=== PATIENT | female | born 1985 | race Caucasian/White ===

== ENCOUNTER 2019-06-20 10:35 | Emergency (ER) | payer MEDICAID ==
[2019-06-20] MEDS ORDERED: Sodium Chloride 0.9% 10 ML Syringe FLUSH PRN (11:07)
[2019-06-20] MEDS ORDERED: Furosemide 40 MG/4 ML VIAL IVPUSH ONE (11:07)
[2019-06-20] MEDS ORDERED: Spironolactone 25 MG Tab PO ONE (11:07)
--- NOTE | 2019-06-20 11:08 | EDM.PDOC ---
ED HPI GENERAL MEDICAL PROBLEM - General Chief Complaint: Abdominal Pain Stated Complaint: RETAINING FLUID IN ABDOMEN/SOB Time Seen by Provider: 06/20/19 10:52 Source of Information: Reports: Patient History Limitations: Reports: No Limitations - History of Present Illness INITIAL COMMENTS - FREE TEXT/NARRATIVE: 34-year-old female presents to the ED due to increasing shortness of breath on minimal exertion. Patient is known to have cirrhosis of the liver with severe ascites and anasarca symptoms. She is on Lasix 40 mg once daily and believes it is no longer helping. Is a open wound on the surface of her skin right lower quadrant of the abdomen. She has never had a paracentesis. He could not do her work today because of shortness of breath on exertion. She said she states that she sleeps lying down on her side without pillows. She has a mild cough on exertion. Is her chronically swollen. She states she is still drinking small quantities of alcohol but has been cutting back. Therefore her cirrhosis appears to be alcohol induced. She states that she was diagnosed with cirrhosis of the liver in December last year. Onset: Gradual Duration: Chronic (Apparently initial diagnosis of cirrhosis of the liver was made in December last ) Location: Reports: Chest, Abdomen (Shortness of breath severe abdominal distention due to ascites), Lower Extremity, Left (Chronic dependent edema both lower extremities), Lower Extremity, Right Quality: Reports: Other (Dyspnea on minimal exertion.) Severity: Moderate Improves with: Reports: Rest Worsens with: Reports: Other Context: Reports: Other (Is essentially has anasarca from cirrhosis of the liver ). Denies: Activity, Exercise, Lifting, Sick Contact, Trauma Associated Symptoms: Reports: Cough, cough w sputum, Malaise, Shortness of Breath, Weakness. 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 Musculoskeletal History: Reports: None Neurological History: Reports: None Psychiatric History: Reports: None, Anxiety Endocrine/Metabolic History: Reports: None, Diabetes, Type II Hematologic History: Reports: None Dermatologic History: Reports: None Social & Family History - Tobacco Use Smoking Status *Q: Never Smoker - Caffeine Use Caffeine Use: Reports: Soda - Alcohol Use Alcohol Use History: Yes - Recreational Drug Use Recreational Drug Use: No - Living Situation & Occupation Living situation: Reports: Single Occupation: Employed ED ROS GENERAL - Review of Systems Review Of Systems: See Below Constitutional: Reports: Malaise, Fatigue, Decreased Appetite. Denies: Fever, Chills HEENT: Reports: No Symptoms Respiratory: Reports: Shortness of Breath, Wheezing, Cough. Denies: Pleuritic Chest Pain, Sputum, Hemoptysis, Other Cardiovascular: Reports: Dyspnea on Exertion, Edema (Anasarca due to cirrhosis of the liver), Orthopnea. Denies: Chest Pain, Blood Pressure Problem, Claudication, Lightheadedness (Held. Usually is able to lie on her side to sleep.) Endocrine: Reports: Fatigue (Chronically) GI/Abdominal: Reports: Abdominal Pain (Generalized due to severe ascites.), Diarrhea (Tend to be on the looser side.), Decreased Appetite (Early satiety) : Reports: Frequency Musculoskeletal: Reports: Joint Pain (Knees hips low back) Skin: Reports: Bruising (Oscar), Other (Peau d'orange change of the entire lower abdominal wall due to ascites) Neurological: Reports: No Symptoms Psychiatric: Reports: No Symptoms Hematologic/Lymphatic: Reports: Anemia (Been anemic in the past.), Easy Bruising Immunologic: Reports: No Symptoms ED EXAM, GI/ABD - Physical Exam Exam: See Below Exam Limited By: No Limitations General Appearance: Alert, Moderate Distress, Other (Temperature is 36.3 heart rate is 99 respiratory is 20 BP 140/75 O2 sats 90% on room air) Eyes: Bilateral: Normal Appearance (Very mild scleral icterus. No blepharal pallor) Throat/Mouth: Normal Inspection, Normal Lips, Normal Oropharynx Head: Atraumatic, Normocephalic Neck: Normal Inspection, Supple, Non-Tender, Full Range of Motion. No: Carotid Bruit, Lymphadenopathy (L), Lymphadenopathy (R) Respiratory/Chest: No Accessory Muscle Use, Respiratory Distress (Kidney at rest.), Rales (And rales both bases of the lungs.). No: Normal Breath Sounds Cardiovascular: Regular Rate, Rhythm, No Gallop, No Murmur, No Rub. No: Normal Peripheral Pulses, No Edema GI/Abdominal Exam: Normal Bowel Sounds, Other (Abdomen is firm and severely distended due to ascites. He is distended throughout with peau d'orange changes in both lower quadrants of the abdomen.) Back Exam: Normal Inspection, Other (Increased lumbar lordosis of lumbar spine.) Extremities: Pedal Edema (4+ pitting edema both lower extremities up to the groins bilaterally. This tissue is tense and hard. There is evidence of venous stasis dermatitis both lower extremities.), Other (Pulses are palpable below below the femorals. Even the femorals are very difficult to palpate due to abdominal girth.) Neurological: Alert, Oriented, CN II-XII Intact Psychiatric: Normal Affect, Normal Mood Skin Exam: Warm, Dry, Intact, Normal Color, No Rash Course - Vital Signs Last Recorded V/S: Last Vital Signs Temp 36.3 C 06/20/19 10:54 Pulse 99 06/20/19 10:54 Resp 20 06/20/19 10:54 BP 140/75 06/20/19 10:54 Pulse Ox 90 L 06/20/19 10:54 - Orders/Labs/Meds Orders: Active Orders 24 hr Category Date Time Status Peripheral IV Care [RC] . DIRECTED Care 06/20/19 11:07 Active Peripheral IV Insertion Adult [OM.PC] Stat Oth 06/20/19 11:07 Ordered Labs: Laboratory Tests 06/20/19 06/20/19 06/20/19 Range/Units 11:40 11:40 11:40 WBC 17.83 H (3.98-10.04) K/mm3 RBC 3.98 (3.98-5.22) M/mm3 Hgb 13.1 (11.2-15.7) gm/dl Hct 39.6 (34.1-44.9) % MCV 99.5 H (79.4-94.8) fl MCH 32.9 H (25.6-32.2) pg MCHC 33.1 (32.2-35.5) g/dl RDW Std Deviation 61.0 H (36.4-46.3) fL Plt Count 272 (182-369) K/mm3 MPV 9.0 L (9.4-12.3) fl Neutrophils % (Manual) 79 H (40-60) % Band Neutrophils % 0 (0-10) % Lymphocytes % (Manual) 17 L (20-40) % Atypical Lymphs % 0 % Monocytes % (Manual) 3 (2-10) % Eosinophils % (Manual) 1 (0.7-5.8) % Basophils % (Manual) 0 L (0.1-1.2) Platelet Estimate Adequate Anisocytosis Sl RBC Morph Comment Abnormal PT 11.1 (9.7-12.0) SECONDS INR 1.02 APTT 29 (22-31) SECONDS Sodium 129 L D (136-145) mEq/L Potassium 3.2 L (3.5-5.1) mEq/L Chloride 88 L (98-107) mEq/L Carbon Dioxide 31 (21-32) mEq/L Anion Gap 13.2 (5-15) BUN 1 L (7-18) mg/dL Creatinine 0.7 (0.55-1.02) mg/dL Est Cr Clr Drug Dosing 90.41 mL/min Estimated GFR (MDRD) > 60 (>60) mL/min BUN/Creatinine Ratio 1.4 L (14-18) Glucose 95 (74-106) mg/dL Calcium 8.7 (8.5-10.1) mg/dL Magnesium 1.2 L (1.8-2.4) mg/dl Total Bilirubin 1.0 (0.2-1.0) mg/dL GGT 434 H (5-55) U/L AST 69 H (15-37) U/L ALT 35 (14-59) U/L Alkaline Phosphatase 154 H (46-116) U/L C-Reactive Protein 6.7 H* (<1.0) mg/dL NT-Pro-B Natriuret Pep (0-125) pg/mL Total Protein 7.8 (6.4-8.2) g/dl Albumin 2.6 L (3.4-5.0) g/dl Globulin 5.2 gm/dL Albumin/Globulin Ratio 0.5 L (1-2) Lipase (73-393) U/L 06/20/19 06/20/19 Range/Units 11:40 11:40 WBC (3.98-10.04) K/mm3 RBC (3.98-5.22) M/mm3 Hgb (11.2-15.7) gm/dl Hct (34.1-44.9) % MCV (79.4-94.8) fl MCH (25.6-32.2) pg MCHC (32.2-35.5) g/dl RDW Std Deviation (36.4-46.3) fL Plt Count (182-369) K/mm3 MPV (9.4-12.3) fl Neutrophils % (Manual) (40-60) % Band Neutrophils % (0-10) % Lymphocytes % (Manual) (20-40) % Atypical Lymphs % % Monocytes % (Manual) (2-10) % Eosinophils % (Manual) (0.7-5.8) % Basophils % (Manual) (0.1-1.2) Platelet Estimate Anisocytosis RBC Morph Comment PT (9.7-12.0) SECONDS INR APTT (22-31) SECONDS Sodium (136-145) mEq/L Potassium (3.5-5.1) mEq/L Chloride (98-107) mEq/L Carbon Dioxide (21-32) mEq/L Anion Gap (5-15) BUN (7-18) mg/dL Creatinine (0.55-1.02) mg/dL Est Cr Clr Drug Dosing mL/min Estimated GFR (MDRD) (>60) mL/min BUN/Creatinine Ratio (14-18) Glucose (74-106) mg/dL Calcium (8.5-10.1) mg/dL Magnesium (1.8-2.4) mg/dl Total Bilirubin (0.2-1.0) mg/dL GGT (5-55) U/L AST (15-37) U/L ALT (14-59) U/L Alkaline Phosphatase (46-116) U/L C-Reactive Protein (<1.0) mg/dL NT-Pro-B Natriuret Pep 240 H (0-125) pg/mL Total Protein (6.4-8.2) g/dl Albumin (3.4-5.0) g/dl Globulin gm/dL Albumin/Globulin Ratio (1-2) Lipase 68 L (73-393) U/L Meds: Medications Discontinued Medications Generic Name Dose Route Start Last Admin Trade Name Freq PRN Reason Stop Dose Admin Furosemide 60 mg 06/20/19 11:07 Lasix IVPUSH 06/20/19 11:08 NOW ONE Furosemide 80 mg 06/20/19 11:35 06/20/19 11:47 Lasix IM 06/20/19 11:36 80 mg NOW ONE Administration Sodium Chloride 10 ml 06/20/19 11:07 Saline Flush FLUSH ASDIRECTED PRN Keep Vein Open Spironolactone 25 mg 06/20/19 11:07 06/20/19 11:49 Aldactone PO 06/20/19 11:08 25 mg ONETIME ONE Administration - Radiology Interpretation Free Text/Narrative:: 84-year-old male presents to the ED due to increasing dyspnea on minimal exertion. She is finding that she is so short of breath on exertion that she cannot perform the duties of her job. Patient was diagnosed with cirrhosis of the liver from alcoholism in December last year. She has basically anasarca on presentation with severe ascites of the abdomen and peau d'orange edema of the lower abdominal wall. She has a few crackles in both lung bases. Only on 40 mg of Lasix once daily. She has never had a paracentesis. 02 Sats are 90% on room air. Has an open wound right lower quadrant of the abdomen which is superficial but is concerning for possibility of creating worsening infection if paracentesis is attempted. Also do not believe that our paracentesis needles are going to be large enough to perform the procedure. I am going to give her Lasix 60 mg IV and have lab drawn. She will have 1 portable chest x- ray. - Re-Assessments/Exams Free Text/Narrative Re-Assessment/Exam: 06/20/19 11:39 is identified that they were unable to start an IV. Lab is hopefully going to be able to obtain a blood sample. I will give her 80 mg of Lasix IM instead of 60 mg IV. 06/20/19 12:24 CXR done portably reveals very poor inspirational film. This therefore suggests cardiomegaly and diffuse vascular congestion without pleural effusion but the film is essentially done at full expiration. 06/20/19 13:52 Hematology reveals an elevated white count at 17.83 with 79% neutrophils but no bands. Hemoglobin is 13.1 with hematocrit of 39.6. MCV is elevated at 99.5 compatible with chronic alcohol use. Platelet count 272,000. PT is 11.1 with an INR of 1.02 and a PTT of 29 essentially normal coags. Sodium is low at 129. Potassium slightly low at 3.2. Chloride is 88 with a bicarb of 31. Anion gap is 13.2. BUN is 1 with a creatinine of 0.7. GFR remains greater than 60. Glucose is 95 with a calcium of 8.7. Magnesium is low at 1.2 bilirubin is 1.0 GGT is elevated at 434 AST elevated at 69 ALT normal at 35 alk phos stays mildly elevated at 154. C-reactive protein is 6.7. BNP was 240 total protein is 7.8 albumin fraction low at 2.6. Lipase is normal at 68. Departure - Departure Time of Disposition: 14:30 Disposition: Home, Self-Care 01 Condition: Fair Clinical Impression: Hypomagnesemia, Hyponatremia, Hypokalemia Cirrhosis of liver with ascites Qualifiers: Hepatic cirrhosis type: alcoholic cirrhosis Qualified Code(s): K70.31 - Alcoholic cirrhosis of liver with ascites - Discharge Information *PRESCRIPTION DRUG MONITORING PROGRAM REVIEWED*: Not Applicable *COPY OF PRESCRIPTION DRUG MONITORING REPORT IN PATIENT EDMUNDO: Not Applicable Prescriptions: Furosemide [Lasix] 40 mg PO BID #60 tablet Magnesium Chloride [Slow-Mag] 71.5 mg PO DAILY #120 tablet. Spironolactone [Aldactone] 25 mg PO BID #60 tablet Instructions: Ascites Referrals: Vianey Yang PA-C [Primary Care Provider] - Forms: ED Department Discharge, ED Return to Work/School Form Additional Instructions: Evaluation in the emergency room today in regards to worsening ascites or fluid collection within the abdominal cavity pushing up on her diaphragms making her short of breath. There is also some evidence of fluid in your lungs on examination and on chest x-ray. Of course significant edema or swelling of both lower extremities from fluid retention. This is secondary to cirrhosis of the liver which was diagnosed in December last year. It is very important that you try and discontinue all alcohol intake. The other medication to be careful of his Tylenol. You should take never more than 2 g in a 24-hour period of time. Labs found that you are slightly low on your potassium level but kidney functions is working perfectly fine. The liver is a little bit sick. Pancreas was normal. You were found to be quite low on magnesium which he had in her diet mostly from eating meat. Water pills tend to make this go lower. Your serum sodium level was slightly low at 129. You should make sure that you drink juices and not just water on a daily basis. You were given 80 mg of Lasix intramuscularly in the ED since IV access was not obtained. This produced significant diuresis. You should try and step on a scale on a daily basis and write down your weight so that we can identify that you are actually losing weight while on diuretics. New medication is to be Lasix 40 mg twice daily first thing in the morning and again mid afternoon between 2 and 3:00. This is to be taken with Spironolactone or Aldactone tablet 25 mg twice daily as well with the Lasix tablet as it makes it work better. It also helps you retain more of your potassium. Suggest stopping your potassium supplement until further lab tests are performed in the next week or so. Magnesium supplement is to be Slow-Mag 2 tablets twice daily. Suggest follow-up with a physician either Dr. Lewis or Dr. Rodriguez at [facility] or the [facility] for further evaluation and management. Sepsis Event Note - Evaluation Sepsis Screening Result: No Definite Risk - Focused Exam Vital Signs: Vital Signs Temp Pulse Resp BP Pulse Ox 06/20/19 10:54 36.3 C 99 20 140/75 90 L Date Exam was Performed: 06/20/19 Time Exam was Performed: 14:47 - My Orders Last 24 Hours: My Active Orders 06/20/19 11:07 Peripheral IV Care [RC] . DIRECTED Peripheral IV Insertion Adult [OM.PC] Stat - Assessment/Plan Last 24 Hours: My Active Orders 06/20/19 11:07 Peripheral IV Care [RC] . DIRECTED Peripheral IV Insertion Adult [OM.PC] Stat
[2019-06-20] MEDS ORDERED: Furosemide 40 MG/4 ML VIAL IM ONE (11:35)
--- NOTE | 2019-06-20 14:39 | CR ---
Chest: Portable view of the chest was obtained. Comparison: Prior chest x-ray of 12/24/18. Elevated right hemidiaphragm is seen which is chronic. Heart is slightly enlarged most likely relating to patient body habitus. No acute parenchymal change is seen. Bony structures are grossly intact. Impression: 1. Findings as noted above. 2. Nothing acute is suspected. Diagnostic code #2 This report was dictated in MDT
== END 2019-06-20 14:32 | disposition home or self-care (01) ==
LOC: JD.ED 10:35
DX: E87.6 Hypokalemia (principal); E83.42 Hypomagnesemia; E87.1 Hypo-osmolality and hyponatremia; K70.31 Alcoholic cirrhosis of liver with ascites; E11.9 Type 2 diabetes mellitus without complications; Z79.84 Long term (current) use of oral hypoglycemic drugs
CPT/HCPCS: 36415; 71045; 80053; 82977; 83690; 83735; 83880; 85007; 85027; 85610; 85730; 86140; 96372; 99285; A9270; J1940

== ENCOUNTER 2020-05-25 10:15 | Emergency (ER) | payer MEDICAID, OTHER ==
[2020-05-25] MEDS ORDERED: Albuterol/Ipratropium 3.0-0.5 MG/3 ML Neb Soln ONE (10:21)
[2020-05-25] MEDS ORDERED: Albuterol/Ipratropium 3.0-0.5 MG/3 ML Neb Soln NEB PRN (10:23)
--- NOTE | 2020-05-25 10:42 | EDM.PDOC ---
ED HPI GENERAL MEDICAL PROBLEM - General Chief Complaint: Respiratory Problem Stated Complaint: [facility] Time Seen by Provider: 05/25/20 10:17 Source of Information: Reports: Patient History Limitations: Reports: No Limitations - History of Present Illness INITIAL COMMENTS - FREE TEXT/NARRATIVE: 84-year-old female presents to the ED with upper respiratory tract infection with paroxysmal productive cough of yellowish-brown sputum x3 days. Presents to the ED due to being very short of breath on presentation to the walk-in clinic at [facility]. O2 sats reportedly only 70% on room air. Patient was placed nonrebreather mask at 12 L/min upon arrival in the ED. She has bilateral crackles in both upper lobes of the lungs and bases. She reports she is on Lasix 40 mg a day but has not taken any of her meds today. Appetite has been poor and she did not take much in the way of solids or fluids yesterday. No known exposure to COVID-19 illness. She has not received any immunizations in this regard. She does not have a history of asthma. Onset: Gradual Onset Date: 05/22/20 Duration: Day(s):, Constant, Getting Worse Location: Reports: Chest Quality: Reports: Other (Of breath at rest. Worse with exertion.) Severity: Severe (Dyspnea even at rest) Improves with: Reports: Rest Worsens with: Reports: Movement (Is with movement or walking.) Context: Denies: Activity, Exercise, Lifting, Sick Contact, Trauma, Other Associated Symptoms: Reports: Cough, cough w sputum, Loss of Appetite, Malaise, Shortness of Breath, Weakness. 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) Headache Pain Score (Numeric/FACES): 8 - Related Data Allergies Allergy/AdvReac Type Severity Reaction Status Date / Time potassium chloride Allergy Hives Verified 05/25/20 10:22 Home Meds: Home Meds l-Norgest/E.estradiol-E.estrad [Daysee 0.15-0.03-0.01 mg Tab] 1 tab PO DAILY 06/20/19 [History] Ascorbic Acid [C-1000] 1,000 mg PO DAILY 05/25/20 [History] Calcium Carbonate/Vitamin D3 [Calcium 600 mg-Vit D3 10Mcg Tb] 2 tab PO BID 05/25/20 [History] FLUoxetine [PROzac] 40 mg PO DAILY 05/25/20 [History] Ferrous Sulfate 325 mg PO DAILY 05/25/20 [History] Furosemide [Lasix] 40 mg PO DAILY 05/25/20 [History] Hydrocodone/Acetaminophen [Hydrocodone-Acetamin 5-325 mg] 1 tab PO Q12H PRN 05/25/20 [History] Levothyroxine [Synthroid] 50 mcg PO DAILY 05/25/20 [History] Multivitamin [Multiple Vitamins] 1 tab PO DAILY 05/25/20 [History] OLANZapine [Olanzapine] 5 mg PO DAILY 05/25/20 [History] Dyke-3 Fatty Acids/Fish Oil [Fish Oil 1,000 mg Capsule] 3 cap PO DAILY 05/25/20 [History] Potassium Chloride 20 meq PO DAILY 05/25/20 [History] busPIRone [Buspar] 15 mg PO DAILY 05/25/20 [History] cloNIDine [Catapres] 0.1 mg PO BEDTIME 05/25/20 [History] predniSONE 40 mg PO DAILY 05/25/20 [History] Past Medical History HEENT History: Reports: None Cardiovascular History: Reports: Hypertension Respiratory History: Reports: None Gastrointestinal History: Reports: Fatty Liver Genitourinary History: Reports: None 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 Musculoskeletal History: Reports: None Neurological History: Reports: None Psychiatric History: Reports: None, Anxiety Endocrine/Metabolic History: Reports: None, Diabetes, Type II, Obesity/BMI 30+ (Morbid obesity) Hematologic History: Reports: None Dermatologic History: Reports: None Social & Family History - Caffeine Use Caffeine Use: Reports: Soda - Living Situation & Occupation Living situation: Reports: Single Occupation: Employed [employer] [email or web address]] GENERAL - Review of Systems Review Of Systems: See Below Constitutional: Reports: Malaise, Weakness, Fatigue, Decreased Appetite. Denies: Fever, Chills, Weight Loss HEENT: Reports: No Symptoms Respiratory: Reports: Shortness of Breath, Cough, Sputum. Denies: Wheezing, Pleuritic Chest Pain, Hemoptysis Cardiovascular: Reports: Blood Pressure Problem, Dyspnea on Exertion, Edema. Denies: Chest Pain (Yellow to brown sputum.), Claudication, Lightheadedness, Orthopnea Endocrine: Reports: Fatigue GI/Abdominal: Reports: No Symptoms, Decreased Appetite. Denies: Abdominal Pain, Anorexia, Black Stool, Bloody Stool, Difficulty Swallowing : Reports: No Symptoms Musculoskeletal: Reports: Back Pain, Joint Pain Skin: Reports: No Symptoms (He is in hips.) Neurological: Reports: No Symptoms Psychiatric: Reports: Anxiety, Depression, Mood Lability Hematologic/Lymphatic: Reports: No Symptoms Immunologic: Reports: No Symptoms ED EXAM, GENERAL - Physical Exam Exam: See Below Exam Limited By: No Limitations General Appearance: Alert, Moderate Distress (This apneic. Not tolerating), Other ( mask very well is feeling claustrophobic. Temperature is 36.1 with heart rate 120 and sinus on the monitor respiratory is 28 to 32/min with pulse ox of 78%. BP 143/90.) Eye Exam: Bilateral Eye: Normal Inspection Ears: Normal TMs Throat/Mouth: Normal Inspection, Normal Lips, Normal Oropharynx, Other Head: Atraumatic, Normocephalic Neck: Normal Inspection (Tongue is dry and coated.), Supple, Non-Tender, Full Range of Motion. No: Carotid Bruit, Lymphadenopathy (L), Lymphadenopathy (R), Thyromegaly Respiratory/Chest: Respiratory Distress, Decreased Breath Sounds (Marked tachypnea on examination.), Rales ( Decreased breath sounds to both lower lung hannon by 20%. Bilateral crackles in both), Rhonchi (Rhonchi right upper lung field.). No: Lungs Clear ( lower lung hannon.), Normal Breath Sounds, Wheezing Cardiovascular: Regular Rate, Rhythm, No Gallop, No JVD, No Murmur, Tachycardia (Tachycardia 120 at rest.). No: No Edema Peripheral Pulses: 2+: Carotid (L), Carotid (R), Posterior Tibial (L), Posterior Tibial (R), Dorsalis Pedis (L), Dorsalis Pedis (R) GI/Abdominal: Normal Bowel Sounds, Soft, Non-Tender, No Mass, Other ([place] girth limits ability to palpate solid organs. Morbidly obese.) Back Exam: Normal Inspection, Full Range of Motion. No: CVA Tenderness (L), CVA Tenderness (R) Neurological: Alert, Oriented, CN II-XII Intact, Normal Cognition Psychiatric: Normal Affect, Normal Mood Skin Exam: Warm, Dry, Intact, Normal Color, No Rash #1 Interpretation EKG Date: 05/25/20 Time: 12:07 Rhythm: Other Rate (Beats/Min): 109 Iraan: Normal P-Wave: Enlarged (Atrial hypertrophy inverted T waves V1 V2 but overall rhythm appears to be sinus not ectopic.) QRS: Other (Initial poor R wave progression. Consider possible old anteroseptal myocardial infarction. There is delayed R wave transition. Decreased voltage in the precordial leads. Left atrial) ST-T: Other (T wave inverted aVL nonspecific finding) QT: Prolonged (Mildly prolonged) EKG Interpretation Comments: Abnormal ECG Course - Vital Signs Last Recorded V/S: Last Vital Signs Temp 36.0 C L 05/25/20 15:20 Pulse 98 05/25/20 15:20 Resp 28 H 05/25/20 15:20 BP 133/72 05/25/20 15:20 Pulse Ox 96 05/25/20 15:20 - Orders/Labs/Meds Orders: Active Orders 24 hr Category Date Time Status CULTURE BLOOD [BC] Stat Lab 05/25/20 11:00 Received CULTURE BLOOD [BC] Stat Lab 05/25/20 11:12 Received Blood Culture x2 Reflex Set [OM.PC] Stat Oth 05/25/20 10:25 Ordered Blood Culture x2 Reflex Set [OM.PC] Stat Oth 05/25/20 10:47 Ordered Labs: Laboratory Tests 05/25/20 05/25/20 05/25/20 Range/Units 10:30 10:55 11:00 WBC 14.55 H (3.98-10.04) K/mm3 RBC 4.44 (3.98-5.22) M/mm3 Hgb 14.6 D (11.2-15.7) gm/dl Hct 45.8 H (34.1-44.9) % MCV 103.2 H (79.4-94.8) fl MCH 32.9 H (25.6-32.2) pg MCHC 31.9 L (32.2-35.5) g/dl RDW Std Deviation 58.7 H (36.4-46.3) fL Plt Count 196 D (182-369) K/mm3 MPV 8.8 L (9.4-12.3) fl Neut % (Auto) 69.9 (34.0-71.1) % Lymph % (Auto) 23.7 (19.3-51.7) % [place] % (Auto) 4.2 L (4.7-12.5) % Eos % (Auto) 0.2 L (0.7-5.8) Baso % (Auto) 0.5 (0.1-1.2) % Neut # (Auto) 10.17 H (1.56-6.13) K/mm3 Lymph # (Auto) 3.45 (1.18-3.74) K/mm3 [place] # (Auto) 0.61 H (0.24-0.36) K/mm3 Eos # (Auto) 0.03 L (0.04-0.36) K/mm3 Baso # (Auto) 0.07 (0.01-0.08) K/mm3 Manual Slide Review Normal smear PT (9.7-12.0) SECONDS INR APTT (21.7-31.4) SECONDS D-Dimer, Quantitative (0.19-0.50) mg/L Puncture Site Rt radial ABG pH 7.50 H (7.35-7.45) ABG pCO2 47.1 H (35.0-45.0) mmHg ABG pO2 43.0 L (80.0-100.0) mmHg ABG HCO3 36.0 H (22.0-26.0) meq/L ABG O2 Saturation 74.0 L (96.0-97.0) % ABG Base Excess 11.1 H (-2-2.0) Ronan Test Positive A-a Gradient 48 mmHg O2 Delivery Device Room air FiO2 21.00 (21.00-100.00) % Sodium (136-145) mEq/L Potassium (3.5-5.1) mEq/L Chloride (98-107) mEq/L Carbon Dioxide (21-32) mEq/L Anion Gap (5-15) BUN (7-18) mg/dL Creatinine (0.55-1.02) mg/dL Est Cr Clr Drug Dosing mL/min Estimated GFR (MDRD) (>60) mL/min BUN/Creatinine Ratio (14-18) Glucose (74-106) mg/dL Lactic Acid (0.4-2.0) mmol/L Calcium (8.5-10.1) mg/dL Magnesium (1.8-2.4) mg/dl Ferritin (8-252) ng/ml Total Bilirubin (0.2-1.0) mg/dL AST (15-37) U/L ALT (14-59) U/L Alkaline Phosphatase (46-116) U/L Lactate Dehydrogenase (81-234) U/L Troponin I (0.00-0.056) ng/mL C-Reactive Protein (<1.0) mg/dL NT-Pro-B Natriuret Pep (0-125) pg/mL Total Protein (6.4-8.2) g/dl Albumin (3.4-5.0) g/dl Globulin gm/dL Albumin/Globulin Ratio (1-2) Urine Color (Yellow) Urine Appearance (Clear) Urine pH (5.0-8.0) Ur Specific [place] (1.005-1.030) Urine Protein (Negative) Urine Glucose (UA) (Negative) Urine Ketones (Negative) Urine Occult Blood (Negative) Urine Nitrite (Negative) Urine Bilirubin (Negative) Urine Urobilinogen (0.2-1.0) Ur Leukocyte Esterase (Negative) Urine RBC (0-5) /hpf Urine WBC (0-5) /hpf Ur Squamous Epith Cells (0-5) /hpf Urine Bacteria (FEW) /hpf Urine Mucus (FEW) /hpf SARS-CoV-2 RNA (TERRA) Positive H (NEGATIVE) 05/25/20 05/25/20 05/25/20 Range/Units 11:00 11:00 11:00 WBC (3.98-10.04) K/mm3 RBC (3.98-5.22) M/mm3 Hgb (11.2-15.7) gm/dl Hct (34.1-44.9) % MCV (79.4-94.8) fl MCH (25.6-32.2) pg MCHC (32.2-35.5) g/dl RDW Std Deviation (36.4-46.3) fL Plt Count (182-369) K/mm3 MPV (9.4-12.3) fl Neut % (Auto) (34.0-71.1) % Lymph % (Auto) (19.3-51.7) % [place] % (Auto) (4.7-12.5) % Eos % (Auto) (0.7-5.8) Baso % (Auto) (0.1-1.2) % Neut # (Auto) (1.56-6.13) K/mm3 Lymph # (Auto) (1.18-3.74) K/mm3 [place] # (Auto) (0.24-0.36) K/mm3 Eos # (Auto) (0.04-0.36) K/mm3 Baso # (Auto) (0.01-0.08) K/mm3 Manual Slide Review PT 10.7 (9.7-12.0) SECONDS INR 1.00 APTT 27.7 (21.7-31.4) SECONDS D-Dimer, Quantitative (0.19-0.50) mg/L Puncture Site ABG pH (7.35-7.45) ABG pCO2 (35.0-45.0) mmHg ABG pO2 (80.0-100.0) mmHg ABG HCO3 (22.0-26.0) meq/L ABG O2 Saturation (96.0-97.0) % ABG Base Excess (-2-2.0) Ronan Test A-a Gradient mmHg O2 Delivery Device FiO2 (21.00-100.00) % Sodium 140 (136-145) mEq/L Potassium 3.1 L (3.5-5.1) mEq/L Chloride 95 L (98-107) mEq/L Carbon Dioxide 36 H (21-32) mEq/L Anion Gap 12.1 (5-15) BUN 12 (7-18) mg/dL Creatinine 1.1 H (0.55-1.02) mg/dL Est Cr Clr Drug Dosing 57.53 mL/min Estimated GFR (MDRD) 57 (>60) mL/min BUN/Creatinine Ratio 10.9 L (14-18) Glucose 110 H (74-106) mg/dL Lactic Acid (0.4-2.0) mmol/L Calcium 9.1 D (8.5-10.1) mg/dL Magnesium 1.6 L (1.8-2.4) mg/dl Ferritin (8-252) ng/ml Total Bilirubin 0.6 (0.2-1.0) mg/dL AST 53 H (15-37) U/L ALT 63 H (14-59) U/L Alkaline Phosphatase 77 (46-116) U/L Lactate Dehydrogenase (81-234) U/L Troponin I 0.021 (0.00-0.056) ng/mL C-Reactive Protein 17.1 H* (<1.0) mg/dL NT-Pro-B Natriuret Pep 355 H (0-125) pg/mL Total Protein 6.7 (6.4-8.2) g/dl Albumin 2.7 L (3.4-5.0) g/dl Globulin 4.0 gm/dL Albumin/Globulin Ratio 0.7 L (1-2) Urine Color (Yellow) Urine Appearance (Clear) Urine pH (5.0-8.0) Ur Specific [place] (1.005-1.030) Urine Protein (Negative) Urine Glucose (UA) (Negative) Urine Ketones (Negative) Urine Occult Blood (Negative) Urine Nitrite (Negative) Urine Bilirubin (Negative) Urine Urobilinogen (0.2-1.0) Ur Leukocyte Esterase (Negative) Urine RBC (0-5) /hpf Urine WBC (0-5) /hpf Ur Squamous Epith Cells (0-5) /hpf Urine Bacteria (FEW) /hpf Urine Mucus (FEW) /hpf SARS-CoV-2 RNA (TERRA) (NEGATIVE) 05/25/20 05/25/20 05/25/20 Range/Units 11:00 11:00 11:00 WBC (3.98-10.04) K/mm3 RBC (3.98-5.22) M/mm3 Hgb (11.2-15.7) gm/dl Hct (34.1-44.9) % MCV (79.4-94.8) fl MCH (25.6-32.2) pg MCHC (32.2-35.5) g/dl RDW Std Deviation (36.4-46.3) fL Plt Count (182-369) K/mm3 MPV (9.4-12.3) fl Neut % (Auto) (34.0-71.1) % Lymph % (Auto) (19.3-51.7) % [place] % (Auto) (4.7-12.5) % Eos % (Auto) (0.7-5.8) Baso % (Auto) (0.1-1.2) % Neut # (Auto) (1.56-6.13) K/mm3 Lymph # (Auto) (1.18-3.74) K/mm3 [place] # (Auto) (0.24-0.36) K/mm3 Eos # (Auto) (0.04-0.36) K/mm3 Baso # (Auto) (0.01-0.08) K/mm3 Manual Slide Review PT (9.7-12.0) SECONDS INR APTT (21.7-31.4) SECONDS D-Dimer, Quantitative 0.27 (0.19-0.50) mg/L Puncture Site ABG pH (7.35-7.45) ABG pCO2 (35.0-45.0) mmHg ABG pO2 (80.0-100.0) mmHg ABG HCO3 (22.0-26.0) meq/L ABG O2 Saturation (96.0-97.0) % ABG Base Excess (-2-2.0) Ronan Test A-a Gradient mmHg O2 Delivery Device FiO2 (21.00-100.00) % Sodium (136-145) mEq/L Potassium (3.5-5.1) mEq/L Chloride (98-107) mEq/L Carbon Dioxide (21-32) mEq/L Anion Gap (5-15) BUN (7-18) mg/dL Creatinine (0.55-1.02) mg/dL Est Cr Clr Drug Dosing mL/min Estimated GFR (MDRD) (>60) mL/min BUN/Creatinine Ratio (14-18) Glucose (74-106) mg/dL Lactic Acid 1.7 (0.4-2.0) mmol/L Calcium (8.5-10.1) mg/dL Magnesium (1.8-2.4) mg/dl Ferritin (8-252) ng/ml Total Bilirubin (0.2-1.0) mg/dL AST (15-37) U/L ALT (14-59) U/L Alkaline Phosphatase (46-116) U/L Lactate Dehydrogenase 407 H (81-234) U/L Troponin I (0.00-0.056) ng/mL C-Reactive Protein (<1.0) mg/dL NT-Pro-B Natriuret Pep (0-125) pg/mL Total Protein (6.4-8.2) g/dl Albumin (3.4-5.0) g/dl Globulin gm/dL Albumin/Globulin Ratio (1-2) Urine Color (Yellow) Urine Appearance (Clear) Urine pH (5.0-8.0) Ur Specific [place] (1.005-1.030) Urine Protein (Negative) Urine Glucose (UA) (Negative) Urine Ketones (Negative) Urine Occult Blood (Negative) Urine Nitrite (Negative) Urine Bilirubin (Negative) Urine Urobilinogen (0.2-1.0) Ur Leukocyte Esterase (Negative) Urine RBC (0-5) /hpf Urine WBC (0-5) /hpf Ur Squamous Epith Cells (0-5) /hpf Urine Bacteria (FEW) /hpf Urine Mucus (FEW) /hpf SARS-CoV-2 RNA (TERRA) (NEGATIVE) 05/25/20 05/25/20 Range/Units 11:00 15:11 WBC (3.98-10.04) K/mm3 RBC (3.98-5.22) M/mm3 Hgb (11.2-15.7) gm/dl Hct (34.1-44.9) % MCV (79.4-94.8) fl MCH (25.6-32.2) pg MCHC (32.2-35.5) g/dl RDW Std Deviation (36.4-46.3) fL Plt Count (182-369) K/mm3 MPV (9.4-12.3) fl Neut % (Auto) (34.0-71.1) % Lymph % (Auto) (19.3-51.7) % [place] % (Auto) (4.7-12.5) % Eos % (Auto) (0.7-5.8) Baso % (Auto) (0.1-1.2) % Neut # (Auto) (1.56-6.13) K/mm3 Lymph # (Auto) (1.18-3.74) K/mm3 [place] # (Auto) (0.24-0.36) K/mm3 Eos # (Auto) (0.04-0.36) K/mm3 Baso # (Auto) (0.01-0.08) K/mm3 Manual Slide Review PT (9.7-12.0) SECONDS INR APTT (21.7-31.4) SECONDS D-Dimer, Quantitative (0.19-0.50) mg/L Puncture Site ABG pH (7.35-7.45) ABG pCO2 (35.0-45.0) mmHg ABG pO2 (80.0-100.0) mmHg ABG HCO3 (22.0-26.0) meq/L ABG O2 Saturation (96.0-97.0) % ABG Base Excess (-2-2.0) Ronan Test A-a Gradient mmHg O2 Delivery Device FiO2 (21.00-100.00) % Sodium (136-145) mEq/L Potassium (3.5-5.1) mEq/L Chloride (98-107) mEq/L Carbon Dioxide (21-32) mEq/L Anion Gap (5-15) BUN (7-18) mg/dL Creatinine (0.55-1.02) mg/dL Est Cr Clr Drug Dosing mL/min Estimated GFR (MDRD) (>60) mL/min BUN/Creatinine Ratio (14-18) Glucose (74-106) mg/dL Lactic Acid (0.4-2.0) mmol/L Calcium (8.5-10.1) mg/dL Magnesium (1.8-2.4) mg/dl Ferritin 354 H (8-252) ng/ml Total Bilirubin (0.2-1.0) mg/dL AST (15-37) U/L ALT (14-59) U/L Alkaline Phosphatase (46-116) U/L Lactate Dehydrogenase (81-234) U/L Troponin I (0.00-0.056) ng/mL C-Reactive Protein (<1.0) mg/dL NT-Pro-B Natriuret Pep (0-125) pg/mL Total Protein (6.4-8.2) g/dl Albumin (3.4-5.0) g/dl Globulin gm/dL Albumin/Globulin Ratio (1-2) Urine Color [place] H (Yellow) Urine Appearance Slt cloudy H (Clear) Urine pH 5.5 (5.0-8.0) Ur Specific [place] 1.025 (1.005-1.030) Urine Protein 3+ H (Negative) Urine Glucose (UA) Negative (Negative) Urine Ketones Trace H (Negative) Urine Occult Blood Negative (Negative) Urine Nitrite Negative (Negative) Urine Bilirubin 1+ H (Negative) Urine Urobilinogen 0.2 (0.2-1.0) Ur Leukocyte Esterase Negative (Negative) Urine RBC 0-5 (0-5) /hpf Urine WBC 10-20 H (0-5) /hpf Ur Squamous Epith Cells 5-10 H (0-5) /hpf Urine Bacteria Many H (FEW) /hpf Urine Mucus Few (FEW) /hpf SARS-CoV-2 RNA (TERRA) (NEGATIVE) Meds: Medications Discontinued Medications Generic Name Dose Route Start Last Admin Trade Name Freq PRN Reason Stop Dose Admin Albuterol/Ipratropium Confirm 05/25/20 10:21 05/25/20 10:15 Albuterol/Ipratropium 3.0-0.5 Mg/3 Ml Neb Soln Administered 05/25/20 10:22 3 ml Dose Administration 3 ml .ROUTE .STK-MED ONE Albuterol/Ipratropium 3 ml 05/25/20 10:23 Albuterol/Ipratropium 3.0-0.5 Mg/3 Ml Neb Soln NEB Q4H PRN Shortness Of Breath/wheezing Dexamethasone 6 mg 05/25/20 12:23 05/25/20 13:44 Dexamethasone 4 Mg/Ml 5 Ml Mdv IV 05/25/20 12:24 6 mg ONETIME ONE Administration Dextrose/Sodium Chloride 1,000 mls @ 75 mls/hr 05/25/20 11:00 Dextrose 5%-Normal Saline IV ASDIRECTED ELANA Potassium Chloride 10 meq/ 100 mls @ 100 mls/hr 05/25/20 12:30 Premix IV 05/25/20 14:29 Q1H ELANA Remdesivir 200 mg/ Sodium 250 mls @ 250 mls/hr 05/25/20 14:00 05/25/20 14:12 Chloride IV 05/25/20 14:59 250 mls/hr ONETIME ONE Administration - Radiology Interpretation Free Text/Narrative:: 34-year-old female to the ED from the walk-in clinic at [facility]. She presented there due to a cough and was identified to be quite hypoxic on room air at 71%. She was sent to the ED for further evaluation and management of dyspnea and hypoxemia. Blood gases done in the ED revealed a pH of 7.50 with a PCO2 of 47.1 and a PO2 of only 43. This was done on room air. Sats were 74%. Exam reveals rhonchi right upper lung field. Decreased entry to both lower lung hannon with fine crackles in both lung hannon. She reports she does take Lasix 40 mg daily and has not taken any meds today. Plan chest x-ray to be done. Routine labs including blood cultures and lactic acid. She will be treated as a 6 sepsis protocol patient although her blood pressure is well maintained at this time. 19 screen ordered. She will be started on nasal cannula at 5 to 6 L/min. A well require BiPAP or CPAP. She was intolerant of a nonrebreather mask felt claustrophobic. Given a DuoNeb treatment immediately. - Re-Assessments/Exams Free Text/Narrative Re-Assessment/Exam: 05/25/20 11:54 chest x-ray done portably reveals bilateral pulmonary infiltrates compatible with viral pneumonia related to COVID-19 illness. 05/25/20 11:56 White count is slightly elevated at 14.55. Differential shows 70% neutrophils on the auto differential. Hemoglobin is 14.6 with hematocrit of 45.8. MCV is 103.2 elevated. Platelet count 196,000. PT is 10.7 with an INR of 1.00. PTT is 27.7. Sodium 140 with a potassium slightly low at 3.1. This is from not being able to eat for the last couple of days. Chloride is 95 with a bicarb of 36. Anion gap is 12.1. BUN is 12 with a creatinine of 1.1 and a GFR 57. BUN/creatinine ratio is 10.9. Glucose 110. Lactic acid 1.7. Calcium 9.1. Magnesium slightly low at 1.6. Bilirubin is 0.6 with a AST of 53 and an ALT of 63. Alk phosphatase is 77. Troponin I is less than 0.021. C-reactive protein is not yet available. BNP is slightly elevated at 355. Total protein 6.7 with albumin fraction of 2.7. O2 sats are staying between 91 and 94% on 6 L/min by nasal cannula. Heart rate 104. BP 129/85. 05/25/20 12:18 19 screen is not yet back. CRP is elevated at 17.1. I discussed the likelihood that she has COVID-19 illness based on her chest x-ray. She does not wish to be admitted to our hospital for what ever reason. She wishes to be admitted to [facility] in [place]. I will await her Covid 19 screen as she is a candidate for dexamethasone and remdesivir. 05/25/20 12:23 Covid 19 screen is positive. I will give her dexamethasone 6 mg IV. I will then discuss with [address] [facility] in regards the patient's wish to be transferred to institution for care. D-dimer is 0.27. Serum ferritin is 354. LDH Is 407. There is a history in the notes that she has cirrhosis of the liver. Currently her transaminases are minimally elevated. I will go ahead and give her remdesivir 200 mg IV. I have spoken through the 1 call service at [facility] in [place] and care has been accepted by from the department of internal medicine. If the patient arrives late they will provide information to on-call hospitalist with a view to admission per his service. 05/25/20 15:20: There was a significant delay in ability to transfer for the patient to [facility] for definitive care of her COVID-19 illness per her request. The delay was because they did not have a bed available at [facility] in [place] right away for her. There was availability of ambulance transport from [place]. Departure - Departure Time of Disposition: 15:20 Disposition: DC/Tfer to Acute Hospital 02 Condition: Serious Clinical Impression: Hypoxia, Viral pneumonia, COVID-19, Morbid obesity, Hypokalemia, Hypomagnesemia - Discharge Information *PRESCRIPTION DRUG MONITORING PROGRAM REVIEWED*: Not Applicable *COPY OF PRESCRIPTION DRUG MONITORING REPORT IN PATIENT EDMUNDO: Not Applicable Referrals: PCP,Not In Area [Primary Care Provider] - Forms: ED Department Discharge Additional Instructions: And transferred to [facility] per her request after diagnosis of COVID-19 illness. She presents with significant hypoxemia on room air at 72%. She requiring oxygen at 6 L minute by nasal cannula to maintain O2 sats between 92 and 94%. Patient is morbidly obese placing her at extreme risk of deterioration from COVID-19 illness. There is some notation in her old chart that she may have been diagnosed with cirrhosis of the liver. Her liver enzymes today are fairly normal with minimal elevation of her serum transaminases. She was therefore treated with 6 mg of dexamethasone intravenously and 200 mg of remdesivir intravenously. Sepsis Event Note (ED) - Focused Exam Vital Signs: Vital Signs Temp Pulse Resp BP Pulse Ox Pulse Ox 05/25/20 15:20 36.0 C L 98 28 H 133/72 96 05/25/20 10:52 35.8 C L 112 H 18 106/57 L 79 L 05/25/20 10:35 80 L 05/25/20 10:23 36.1 C 120 H 28 H 153/90 H 78 L - My Orders Last 24 Hours: My Active Orders 05/25/20 10:25 Blood Culture x2 Reflex Set [OM.PC] Stat 05/25/20 10:47 Blood Culture x2 Reflex Set [OM.PC] Stat 05/25/20 11:00 CULTURE BLOOD [BC] Stat 05/25/20 11:12 CULTURE BLOOD [BC] Stat - Assessment/Plan Last 24 Hours: My Active Orders 05/25/20 10:25 Blood Culture x2 Reflex Set [OM.PC] Stat 05/25/20 10:47 Blood Culture x2 Reflex Set [OM.PC] Stat 05/25/20 11:00 CULTURE BLOOD [BC] Stat 05/25/20 11:12 CULTURE BLOOD [BC] Stat
[2020-05-25] MEDS ORDERED: Dextrose 5%-0.9% NaCl 1,000 ML IV SCH (11:00)
[2020-05-25] MEDS ORDERED: Dexamethasone 4 MG/ML 5 ML MDV IV ONE (12:23)
[2020-05-25] MEDS ORDERED: Potassium Chloride 10 MEQ in Premix Bag 1 BAG IV SCH (12:30)
--- NOTE | 2020-05-25 12:36 | CR ---
Chest: Portable view of the chest was obtained. Comparison: Prior chest x-ray of 06/20/19. Heart size and mediastinum are within normal limits for portable technique. Patchy areas of increased density are seen within the chest. Lungs otherwise are clear. Bony structures are unremarkable. Impression: 1. Patchy areas of increased density are suggested within the chest. Please rule out COVID disease. Findings otherwise represent mild areas of bronchitis and pneumonia. 2. No additional abnormality is appreciated. Diagnostic code #3
[2020-05-25] MEDS ORDERED: REMDESIVIR 200 MG in Sodium Chloride 0.9% 250 ML IV ONE ×2 (12:55→14:00)
== END 2020-05-25 15:20 ==
LOC: JD.ED 10:15
DX: U07.1 COVID-19 (principal); J12.82 Pneumonia due to coronavirus disease 2019; I10 Essential (primary) hypertension; E11.9 Type 2 diabetes mellitus without complications; Z68.44 Body mass index [BMI] 60.0-69.9, adult; E66.01 Morbid (severe) obesity due to excess calories; E87.6 Hypokalemia; E83.42 Hypomagnesemia; R09.02 Hypoxemia; Z88.8 Allergy status to other drugs, medicaments and biological substances; Z79.899 Other long term (current) drug therapy
CPT/HCPCS: 36415; 36600; 71045; 80053; 81001; 82728; 82803; 83605; 83615; 83735; 83880; 84484; 85025; 85379; 85610; 85730; 86140; 87040; 87635; 93005; 94640; 96374; 99285; J1100; J7050; 93010; J7620-GY; U0002

== ENCOUNTER 2021-01-13 15:59 | Emergency (ER) | payer OTHER ==
[2021-01-13] MEDS ORDERED: Sodium Chloride 0.9% 10 ML Syringe FLUSH PRN (16:30)
--- NOTE | 2021-01-13 17:11 | EDM.PDOC ---
ED HPI GENERAL MEDICAL PROBLEM - General Chief Complaint: Respiratory Problem Stated Complaint: [facility] Time Seen by Provider: 01/13/21 16:04 Source of Information: Reports: Patient, EMS History Limitations: Reports: No Limitations - History of Present Illness INITIAL COMMENTS - FREE TEXT/NARRATIVE: The patient presents by [facility] for shortness of breath. Her oxygen saturations were low at 33% on room air. She says she got out of the hospital over a week ago. She tells me that she was there for renal failure. She says she had to get dialysis once. Her kidneys are working a little better. 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 She is obese. She has no history of lung problems such as asthma or COPD. She has no fever, chills, ab dominal pain, nausea or vomiting. She has a slight cough. She has some swelling in her legs normally but there is a little more. She has not been going much since she got out. She did go to [facility] yesterday and was short of breath. She brought her mother to the clinic and she was very short of breath. She called 911 for help. They put her on oxygen but she did not tolerate the mask. She would not tolerate it here so my RT put her on a high flow in her nose. Onset: Gradual Duration: Day(s): Severity: Moderate Improves with: Reports: None Worsens with: Reports: None Associated Symptoms: Reports: Cough (slight), Shortness of Breath. Denies: Chest Pain, Headaches, Loss of Appetite, Nausea/Vomiting Left Lower Leg Pain Score (Numeric/FACES): 8 - Related Data Allergies Allergy/AdvReac Type Severity Reaction Status Date / Time potassium chloride Allergy Hives Verified 05/25/20 10:22 Home Meds: Home Meds l-Norgest/E.estradiol-E.estrad [Daysee 0.15-0.03-0.01 mg Tab] 1 tab PO DAILY 06/20/19 [History] Ascorbic Acid [C-1000] 1,000 mg PO DAILY 05/25/20 [History] Calcium Carbonate/Vitamin D3 [Calcium 600 mg-Vit D3 10Mcg Tb] 2 tab PO BID 05/25/20 [History] FLUoxetine [PROzac] 40 mg PO DAILY 05/25/20 [History] Ferrous Sulfate 325 mg PO DAILY 05/25/20 [History] Furosemide [Lasix] 40 mg PO DAILY 05/25/20 [History] Hydrocodone/Acetaminophen [Hydrocodone-Acetamin 5-325 mg] 1 tab PO Q12H PRN 05/25/20 [History] Levothyroxine [Synthroid] 50 mcg PO DAILY 05/25/20 [History] Multivitamin [Multiple Vitamins] 1 tab PO DAILY 05/25/20 [History] OLANZapine [Olanzapine] 5 mg PO DAILY 05/25/20 [History] [place]-3 Fatty Acids/Fish Oil [Fish Oil 1,000 mg Capsule] 3 cap PO DAILY 05/25/20 [History] Potassium Chloride 20 meq PO DAILY 05/25/20 [History] busPIRone [Buspar] 15 mg PO DAILY 05/25/20 [History] cloNIDine [Catapres] 0.1 mg PO BEDTIME 05/25/20 [History] predniSONE 40 mg PO DAILY 05/25/20 [History] Past Medical History HEENT History: Reports: None Cardiovascular History: Reports: Hypertension Other Cardiovascular History: on Lasix for fluid retention. Respiratory History: Reports: None Gastrointestinal History: Reports: None, Fatty Liver Genitourinary History: Reports: None Other IRONWORKER History: Pt on BC for heavy periods Musculoskeletal History: Reports: None Neurological History: Reports: None Psychiatric History: Reports: None, Anxiety Endocrine/Metabolic History: Reports: None, Diabetes, Type II Hematologic History: Reports: None Dermatologic History: Reports: None - Infectious Disease History Infectious Disease History: Reports: Chicken Pox, Influenza, Novel Coronavirus Social & Family History - Tobacco Use Tobacco Use Status *Q: Never Tobacco User - Caffeine Use Caffeine Use: Reports: Coffee, Soda - Recreational Drug Use Recreational Drug Use: No - Living Situation & Occupation Living situation: Reports: Single Occupation: Employed ED ROS GENERAL - Review of Systems Review Of Systems: See Below Constitutional: Reports: No Symptoms HEENT: Reports: No Symptoms Respiratory: Reports: Shortness of Breath, Cough Cardiovascular: Reports: No Symptoms Endocrine: Reports: No Symptoms GI/Abdominal: Reports: No Symptoms : Reports: No Symptoms Musculoskeletal: Reports: No Symptoms Skin: Reports: No Symptoms Neurological: Reports: No Symptoms ED EXAM, GENERAL - Physical Exam Exam: See Below Exam Limited By: No Limitations General Appearance: Alert, No Apparent Distress Ears: Normal External Exam Nose: Normal Inspection Head: Atraumatic, Normocephalic Neck: Normal Inspection Respiratory/Chest: No Respiratory Distress, Decreased Breath Sounds Cardiovascular: Regular Rate, Rhythm, No Edema, No Murmur GI/Abdominal: Soft, Non-Tender, No Organomegaly Back Exam: Normal Inspection Extremities: Pedal Edema Neurological: Alert, Oriented, No Motor/Sensory Deficits #1 Interpretation EKG Date: 01/13/21 Time: 16:57 Rhythm: NSR Rate (Beats/Min): 79 [place]: Normal P-Wave: Present QRS: Normal ST-T: Normal QT: Normal Course - Vital Signs Last Recorded V/S: Last Vital Signs Temp 96.6 F L 01/13/21 16:06 Pulse 75 01/13/21 17:43 Resp 21 H 01/13/21 16:06 BP 166/82 H 01/13/21 16:06 Pulse Ox 95 01/13/21 17:43 - Orders/Labs/Meds Orders: Active Orders 24 hr Category Date Time Status Cardiac Monitoring [RC] . DIRECTED Care 01/13/21 16:30 Active Oxygen Therapy [RC] PRN Care 01/13/21 16:31 Active Peripheral IV Care [RC] . DIRECTED Care 01/13/21 16:32 Active ABG [BLOOD GAS ARTERIAL] [BG] Stat Lab 01/13/21 16:34 Ordered BLOOD CULTURE [MREF] Stat Lab 01/13/21 17:54 Ordered BLOOD CULTURE [MREF] Stat Lab 01/13/21 17:54 Ordered Sodium Chloride 0.9% [Saline Flush] Med 01/13/21 16:30 Active 10 ml FLUSH ASDIRECTED PRN Blood Culture x2 Reflex Set [OM.PC] Stat Oth 01/13/21 17:54 Ordered Peripheral IV Insertion Adult [OM.PC] Stat Oth 01/13/21 16:30 Ordered RT Oxygen High Flow [RESPCARE] Stat Oth 01/13/21 16:15 Active Medication Orders Sodium Chloride (Sodium Chloride 0.9% 10 Ml Syringe) 10 ml FLUSH ASDIRECTED PRN PRN Reason: Keep Vein Open Last Admin: 01/13/21 17:14 Dose: 10 ml Documented by: SOSA Labs: Laboratory Tests 01/13/21 01/13/21 01/13/21 Range/Units 16:30 16:43 16:43 WBC 33.90 H (3.98-10.04) K/mm3 RBC 3.53 L (3.98-5.22) M/mm3 Hgb 10.6 L D (11.2-15.7) gm/dl Hct 35.4 (34.1-44.9) % MCV 100.3 H (79.4-94.8) fl MCH 30.0 (25.6-32.2) pg MCHC 29.9 L (32.2-35.5) g/dl RDW Std Deviation 53.7 H (36.4-46.3) fL Plt Count 496 H D (182-369) K/mm3 MPV 8.9 L (9.4-12.3) fl Neut % (Auto) 65.1 (34.0-71.1) % Lymph % (Auto) 18.0 L (19.3-51.7) % [place] % (Auto) 5.6 (4.7-12.5) % Eos % (Auto) 0.6 L (0.7-5.8) Baso % (Auto) 1.7 H (0.1-1.2) % Neut # (Auto) 22.10 H (1.56-6.13) K/mm3 Lymph # (Auto) 6.10 H (1.18-3.74) K/mm3 [place] # (Auto) 1.89 H (0.24-0.36) K/mm3 Eos # (Auto) 0.20 (0.04-0.36) K/mm3 Baso # (Auto) 0.56 H (0.01-0.08) K/mm3 Manual Slide Review Abnormal smear PT 11.5 (9.7-12.0) SECONDS INR 1.04 APTT 23.3 (21.7-31.4) SECONDS D-Dimer, Quantitative 2.42 H (0.19-0.50) mg/L Puncture Site ABG pH (7.35-7.45) ABG pCO2 (35.0-45.0) mmHg ABG pO2 (80.0-100.0) mmHg ABG HCO3 (22.0-26.0) meq/L ABG O2 Saturation (96.0-97.0) % ABG Base Excess (-2-2.0) [place]an Test O2 Delivery Device Oxygen Flow Rate Sodium (136-145) mEq/L Potassium (3.5-5.1) mEq/L Chloride (98-107) mEq/L Carbon Dioxide (21-32) mEq/L Anion Gap (5-15) BUN (7-18) mg/dL Creatinine (0.55-1.02) mg/dL Est Cr Clr Drug Dosing mL/min Estimated GFR (MDRD) (>60) mL/min BUN/Creatinine Ratio (14-18) Glucose (70-99) mg/dL Lactic Acid 1.3 (0.4-2.0) mmol/L Calcium (8.5-10.1) mg/dL Magnesium (1.8-2.4) mg/dL Total Bilirubin (0.2-1.0) mg/dL AST (15-37) U/L ALT (14-59) U/L Alkaline Phosphatase (46-116) U/L Troponin I (0.00-0.056) ng/mL C-Reactive Protein (<1.0) mg/dL NT-Pro-B Natriuret Pep (0-125) pg/mL Total Protein (6.4-8.2) g/dl Albumin (3.4-5.0) g/dl Globulin gm/dL Albumin/Globulin Ratio (1-2) SARS-CoV-2 RNA (TERRA) (NEGATIVE) 01/13/21 01/13/21 01/13/21 Range/Units 16:43 16:43 17:23 WBC (3.98-10.04) K/mm3 RBC (3.98-5.22) M/mm3 Hgb (11.2-15.7) gm/dl Hct (34.1-44.9) % MCV (79.4-94.8) fl MCH (25.6-32.2) pg MCHC (32.2-35.5) g/dl RDW Std Deviation (36.4-46.3) fL Plt Count (182-369) K/mm3 MPV (9.4-12.3) fl Neut % (Auto) (34.0-71.1) % Lymph % (Auto) (19.3-51.7) % [place] % (Auto) (4.7-12.5) % Eos % (Auto) (0.7-5.8) Baso % (Auto) (0.1-1.2) % Neut # (Auto) (1.56-6.13) K/mm3 Lymph # (Auto) (1.18-3.74) K/mm3 [place] # (Auto) (0.24-0.36) K/mm3 Eos # (Auto) (0.04-0.36) K/mm3 Baso # (Auto) (0.01-0.08) K/mm3 Manual Slide Review PT (9.7-12.0) SECONDS INR APTT (21.7-31.4) SECONDS D-Dimer, Quantitative (0.19-0.50) mg/L Puncture Site ABG pH (7.35-7.45) ABG pCO2 (35.0-45.0) mmHg ABG pO2 (80.0-100.0) mmHg ABG HCO3 (22.0-26.0) meq/L ABG O2 Saturation (96.0-97.0) % ABG Base Excess (-2-2.0) [place]an Test O2 Delivery Device Oxygen Flow Rate Sodium 139 (136-145) mEq/L Potassium 4.5 (3.5-5.1) mEq/L Chloride 100 (98-107) mEq/L Carbon Dioxide 25 D (21-32) mEq/L Anion Gap 18.5 H (5-15) BUN 52 H D (7-18) mg/dL Creatinine 4.1 H D (0.55-1.02) mg/dL Est Cr Clr Drug Dosing 14.59 mL/min Estimated GFR (MDRD) 12 (>60) mL/min BUN/Creatinine Ratio 12.7 L (14-18) Glucose 171 H (70-99) mg/dL Lactic Acid (0.4-2.0) mmol/L Calcium 10.2 H (8.5-10.1) mg/dL Magnesium 2.3 (1.8-2.4) mg/dL Total Bilirubin 2.3 H (0.2-1.0) mg/dL AST 117 H (15-37) U/L ALT 123 H (14-59) U/L Alkaline Phosphatase 151 H (46-116) U/L Troponin I 0.017 (0.00-0.056) ng/mL C-Reactive Protein 14.7 H* (<1.0) mg/dL NT-Pro-B Natriuret Pep 31846 H (0-125) pg/mL Total Protein 6.9 (6.4-8.2) g/dl Albumin 2.8 L (3.4-5.0) g/dl Globulin 4.1 gm/dL Albumin/Globulin Ratio 0.7 L (1-2) SARS-CoV-2 RNA (TERRA) Negative (NEGATIVE) 01/13/21 Range/Units 17:31 WBC (3.98-10.04) K/mm3 RBC (3.98-5.22) M/mm3 Hgb (11.2-15.7) gm/dl Hct (34.1-44.9) % MCV (79.4-94.8) fl MCH (25.6-32.2) pg MCHC (32.2-35.5) g/dl RDW Std Deviation (36.4-46.3) fL Plt Count (182-369) K/mm3 MPV (9.4-12.3) fl Neut % (Auto) (34.0-71.1) % Lymph % (Auto) (19.3-51.7) % [place] % (Auto) (4.7-12.5) % Eos % (Auto) (0.7-5.8) Baso % (Auto) (0.1-1.2) % Neut # (Auto) (1.56-6.13) K/mm3 Lymph # (Auto) (1.18-3.74) K/mm3 [place] # (Auto) (0.24-0.36) K/mm3 Eos # (Auto) (0.04-0.36) K/mm3 Baso # (Auto) (0.01-0.08) K/mm3 Manual Slide Review PT (9.7-12.0) SECONDS INR APTT (21.7-31.4) SECONDS D-Dimer, Quantitative (0.19-0.50) mg/L Puncture Site Rt radial ABG pH 7.32 L (7.35-7.45) ABG pCO2 49.2 H (35.0-45.0) mmHg ABG pO2 45.0 L (80.0-100.0) mmHg ABG HCO3 24.9 (22.0-26.0) meq/L ABG O2 Saturation 63.4 L (96.0-97.0) % ABG Base Excess -0.9 (-2-2.0) [place] Test Positive O2 Delivery Device Nasal cannula Oxygen Flow Rate 6.0 Sodium (136-145) mEq/L Potassium (3.5-5.1) mEq/L Chloride (98-107) mEq/L Carbon Dioxide (21-32) mEq/L Anion Gap (5-15) BUN (7-18) mg/dL Creatinine (0.55-1.02) mg/dL Est Cr Clr Drug Dosing mL/min Estimated GFR (MDRD) (>60) mL/min BUN/Creatinine Ratio (14-18) Glucose (70-99) mg/dL Lactic Acid (0.4-2.0) mmol/L Calcium (8.5-10.1) mg/dL Magnesium (1.8-2.4) mg/dL Total Bilirubin (0.2-1.0) mg/dL AST (15-37) U/L ALT (14-59) U/L Alkaline Phosphatase (46-116) U/L Troponin I (0.00-0.056) ng/mL C-Reactive Protein (<1.0) mg/dL NT-Pro-B Natriuret Pep (0-125) pg/mL Total Protein (6.4-8.2) g/dl Albumin (3.4-5.0) g/dl Globulin gm/dL Albumin/Globulin Ratio (1-2) SARS-CoV-2 RNA (TERRA) (NEGATIVE) Meds: Medications Generic Name Dose Route Start Last Admin Trade Name [place] PRN Reason Stop Dose Admin Sodium Chloride 10 ml 01/13/21 16:30 01/13/21 17:14 Sodium Chloride 0.9% 10 Ml Syringe FLUSH 10 ml ASDIRECTED PRN Administration Keep Vein Open Discontinued Medications Generic Name Dose Route Start Last Admin Trade Name Freq PRN Reason Stop Dose Admin Ceftriaxone Sodium 1 gm/ 100 mls @ 200 mls/hr 01/13/21 17:56 01/13/21 18:34 Sodium Chloride IV 01/13/21 18:25 200 mls/hr ONETIME ONE Administration - Re-Assessments/Exams Free Text/Narrative Re-Assessment/Exam: 01/13/21 17:17 I ordered oxygen, EKG, CXR, labs, duoneb, ABG, and an EKG. Her EKG shows a NSR with no acute changes. 01/13/21 17:59 Her CXR shows an infiltrate in the left lung. Her WBC is elevated at 33.4. Her Hgb is low at 10.6. Her platelets are low at 496. Her D-dimer is elevated at 2.42. Her pH is low at 2.32. Her pCO2 is elevated at 49.2. Her pO2 is low at 45. Her creatinine is very elevated at 4.1. Her anion gap was elevated at 18.5. Her BUN was 52. Her glucose was 171. Her lactic acid was normal at 1.3. Her total bili is elevated at 2.3. Her AST is elevated at 117. Her ALT is elevated at 123. Her alk phos is elevated at 134. Her troponin is negative. Her CRP is elevated at 14.7. Her BNP is very elevated at 18,908. 01/13/21 18:08 I have ordered blood cultures and rocephin 1 gram IV. I am waiting for COVID. She does say she did get the booster and had COVID in April. She was just checked last week and that was negative. 01/13/21 18:46 Her COVID is negative. She needs to be admitted. I called [facility] in [place] and talked with Dr Rodriguez the hospitalist network control operators supervisor at [facility] and she agreed to the transfer. She will be going by ambulance. Departure - Departure Time of Disposition: 18:50 Disposition: DC/[facility]fer to [facility] 02 Condition: Serious Clinical Impression: Hypoxia Pneumonia Qualifiers: Pneumonia type: due to unspecified organism Laterality: left Lung location: upper lobe of lung Qualified Code(s): J18.9 - Pneumonia, unspecified organism Renal failure Qualifiers: Renal failure chronicity: acute Acute renal failure type: unspecified Qualified Code(s): N17.9 - Acute kidney failure, unspecified - Discharge Information Referrals: Lucy Bowser [Primary Care Provider] - Forms: ED Department Discharge Sepsis Event Note (ED) - Focused Exam Vital Signs: Vital Signs Temp Pulse Resp BP Pulse Ox Pulse Ox 01/13/21 17:43 75 95 01/13/21 16:15 93 L 01/13/21 16:06 96.6 F L 84 21 H 166/82 H 33 L - My Orders Last 24 Hours: My Active Orders 01/13/21 16:15 RT Oxygen High Flow [RESPCARE] Stat 01/13/21 16:30 Cardiac Monitoring [RC] . DIRECTED Sodium Chloride 0.9% [Saline Flush] 10 ml FLUSH ASDIRECTED PRN Peripheral IV Insertion Adult [OM.PC] Stat 01/13/21 16:31 Oxygen Therapy [RC] PRN 01/13/21 16:32 Peripheral IV Care [RC] . DIRECTED 01/13/21 16:34 ABG [BLOOD GAS ARTERIAL] [BG] Stat 01/13/21 17:54 BLOOD CULTURE [MREF] Stat BLOOD CULTURE [MREF] Stat Blood Culture x2 Reflex Set [OM.PC] Stat - Assessment/Plan Last 24 Hours: My Active Orders 01/13/21 16:15 RT Oxygen High Flow [RESPCARE] Stat 01/13/21 16:30 Cardiac Monitoring [RC] . DIRECTED Sodium Chloride 0.9% [Saline Flush] 10 ml FLUSH ASDIRECTED PRN Peripheral IV Insertion Adult [OM.PC] Stat 01/13/21 16:31 Oxygen Therapy [RC] PRN 01/13/21 16:32 Peripheral IV Care [RC] . DIRECTED 01/13/21 16:34 ABG [BLOOD GAS ARTERIAL] [BG] Stat 01/13/21 17:54 BLOOD CULTURE [MREF] Stat BLOOD CULTURE [MREF] Stat Blood Culture x2 Reflex Set [OM.PC] Stat
[2021-01-13] MEDS ORDERED: cefTRIAXone 1 GM in Sodium Chloride 0.9% 100 ML IV ONE (17:56)
--- NOTE | 2021-01-13 18:08 | CR ---
Chest: Portable view of the chest was obtained. Comparison: Prior chest x-ray of 05/25/20. Heart is enlarged. Hazy diffuse increased density is seen within both lungs. Bony structures show nothing definitely acute. Impression: 1. Hazy increased density within both lungs. Please correlate if this represents asymmetric pulmonary vascular congestion or represents parenchymal disease from viral infection. 2. Cardiomegaly. Diagnostic code #3
== END 2021-01-13 19:59 ==
LOC: JD.ED 15:59 → SUPCPDRO 15:59 → JD.ED 19:59
DX: N17.9 Acute kidney failure, unspecified (principal); J18.9 Pneumonia, unspecified organism; R09.02 Hypoxemia; I10 Essential (primary) hypertension; E11.9 Type 2 diabetes mellitus without complications; Z79.899 Other long term (current) drug therapy; Z20.822 Contact with and (suspected) exposure to COVID-19
CPT/HCPCS: 36415; 36600; 71045; 80053; 82803; 83605; 83735; 83880; 84484; 85025; 85379; 85610; 85730; 86140; 87040; 87635; 93005; 96365; 99285; J0696; U0002